=== PATIENT | male | born 1970 | race Caucasian/White ===

== ENCOUNTER → 2017-08-11 | Outpatient (CLI) | payer BC ==
[~2017-08-11] MED LIST: CZR50 PO; HYDR-4079 PO; MULT-506 PO
--- NOTE | 2017-08-11 08:20 | DIAGNOSTIC IMAGING REPORT ---
TESTICULAR ULTRASOUND CLINICAL HISTORY: TESTICULAR PAIN, R79.0 COMPARISON STUDY: No previous studies for comparison. FINDINGS: The right testis measures 40 x 23 x 29 mm. The left testis measures 37 x 23 x 27 mm. No intratesticular masses are visualized. There are few tiny right testicular microcalcifications. There is no evidence of testicular torsion. There is no ultrasonographic evidence of acute epididymitis. IMPRESSION: 1. No evidence of intratesticular mass 2. No evidence of testicular torsion Electronically signed by: Ashu Pradhan M.D. 08/11/2017 8:19 AM Dictated Date/Time: 08/11/2017 8:17 AM
== END | disposition home or self-care (01) ==
LOC: C.ULTR 07:22
PROVIDERS: ATTEND Family Medicine
DX: N50.811 Right testicular pain (principal); N50.812 Left testicular pain; R79.0 Abnormal level of blood mineral